=== PATIENT | female | born 1965 | race Caucasian/White ===

== ENCOUNTER → 2017-01-21 | Outpatient (CLI) | payer BC ==
[~2017-01-21] MED LIST: BCP TD; CARAFATE1 GM PO; CYCLOBENZAPRINE10 MG PO; DDAVP TAB0.2 MG PO; FAMOTIDINE20 MG PO; FIORICET 325 MG1 TAB; FIORICET 325 MG1 TAB PO; FIORINAL W/CODE1 CA2 PO; FLEXERIL 1010 MG/TAB PO; KARIVA1 TAB PO; LAMICTAL CD5 MG PO; LAMICTAL200 MG PO; LEXAPRO 10MG10 MG PO; LORTAB 5/500 501 TAB PO; MS CONTIN 115 MG/TAB PO; MUSCLE RELAXANT; NABUMETONE; NAPROSYN500 MG PO; NEURONTIN400 MG/CAP PO; NORCO 325 MG-51 TAB PO; NORCO 325 MG-7.1 TAB PO; PREDNISONE1 MG PO; PREDNISONE10 MG; PRESTIQUE; PRIL40; PRILOSEC20 MG PO; SAVELLA50 MG PO; TYLENOL 500MG500 MG PO; WELLBUTRIN PO; ZOFRAN 4MG T4 MG/TAB PO; [UNRECOGNIZED DRUG - OTHER]; [UNRECOGNIZED DRUG - OTHER]; [UNRECOGNIZED DRUG - OTHER]
== END ==
LOC: MC.RAD 15:40
DX: Z12.31 Encounter for screening mammogram for malignant neoplasm of breast (principal)

== ENCOUNTER → 2017-12-07 | Outpatient (CLI) | payer BC | LOC: COL.RAD 09:12 | DX: E23.0 Hypopituitarism (principal) | CPT/HCPCS: A9585 ==

== ENCOUNTER → 2019-04-18 | Outpatient (CLI) | payer BC | LOC: MC.RAD 08:15 | DX: Z12.31 Encounter for screening mammogram for malignant neoplasm of breast (principal) ==

== ENCOUNTER → 2020-07-31 | Outpatient (CLI) | payer BC | LOC: MC.RAD 09:45 | DX: Z12.31 Encounter for screening mammogram for malignant neoplasm of breast (principal) ==

== ENCOUNTER → 2022-01-01 | Outpatient (CLI) | payer BC | LOC: MC.RAD 09:00 | DX: Z12.31 Encounter for screening mammogram for malignant neoplasm of breast (principal) ==

== ENCOUNTER 2023-07-15 15:09 | Emergency (ER) | payer BC ==
[~2023-07-15] VITALS: Ht 157.5 cm; Wt 79.5 kg
[2023-07-15 15:38] LABS: COLLECTION METHOD CLEAN CATCH
[2023-07-15 15:48] LABS: URINE APPEARANCE CLEAR (CLEAR/HAZY); URINE BLOOD NEGATIVE (NEGATIVE); URINE COLOR YELLOW (YELLOW); URINE GLUCOSE NEGATIVE (NEGATIVE); URINE KETONE NEGATIVE (NEGATIVE); URINE NITRATE NEGATIVE (NEGATIVE); URINE PROTEIN(semi-quant) NEGATIVE (NEGATIVE); URINE UROBILINOGEN 0.2 E.U/dL (0.2-1.0)
[2023-07-15] MEDS ORDERED: LR 1,000 ML IV ONE (16:30)
[2023-07-15 16:32] LABS: BASO # 0.1 K/mm3 (0.0-0.2); BASO % 0.7 % (0.0-2.0); EOS # 0.2 K/mm3 (0.0-0.7); EOS % 3.3 % (0.0-4.0); GRAN # 3.4 K/mm3 (1.4-6.5); GRAN % 47.7 % (42.2-75.2); HEMATOCRIT 36.9 % (37.0-47.0); HEMOGLOBIN 11.8 g/dl (12.5-16.0); LYMPH % 42.9 % (20.0-51.0); MEAN CELL VOLUME 99 fl (80.0-100.0); MEAN CORPUSCULAR HEMOGLOBIN 32 pg (27-31); MEAN CORPUSCULAR HGB CONC 32 g/dl (33.0-37.0); MONO # 0.4 K/mm3 (0.1-0.6); MONO % 5.1 % (1.7-9.3); PLATELET COUNT 117 K/mm3 (130-400); RED BLOOD COUNT 3.74 M/mm3 (4.10-5.30)
[2023-07-15 16:44] LABS: ALBUMIN 3.9 g/dL (3.5-5.0); BILIRUBIN,TOTAL 0.1 mg/dL (0.2-1.2); CALCIUM 9.1 mg/dL (8.4-10.2); CREATININE, serum 0.88 mg/dL (0.57-1.11); MAGNESIUM 2.1 mg/dL (1.6-2.6); POTASSIUM 3.8 mEq/L (3.5-4.5); TOTAL PROTEIN 7.1 g/dl (6.2-8.1)
[2023-07-15 18:56] VITALS: BP 127/75; PULSE 61; TEMP 98
== END 2023-07-15 18:54 | disposition home or self-care (01) ==
LOC: COL.ER 15:09
PROVIDERS: Emergency Medicine
DX: R42 Dizziness and giddiness (principal); R53.81 Other malaise; R53.83 Other fatigue
CPT/HCPCS: J7120